=== PATIENT | male | born 1950 | race Caucasian/White ===

== ENCOUNTER → 2018-08-07 | Outpatient (CLI) | payer OTHER ==
[~2018-08-07] MED LIST: ASPIRIN CHEWABL81 MG PO; DICYCLOMINE HCL10 MG PO; INVOKAMET 50-11 EACH PO; LISINOPRIL20 MG PO; MONTELUKAST SOD10 MG PO; OMEPRAZOLE40 MG PO; ROSUVASTATIN CA20 MG PO; SYMB160 INH; TRULICITY0.75 MG/0. SC
== END | disposition home or self-care (01) ==
LOC: US 06:08
DX: K76.0 Fatty (change of) liver, not elsewhere classified (principal)

== ENCOUNTER 2018-09-09 09:03 | Inpatient (IN) | payer OTHER, MEDICARE ==
[~2018-09-09] VITALS: Ht 182.9 cm; Wt 104.4 kg
--- NOTE | ~2018-09-09 | O ---
[place], [place] OPERATIVE NOTE NAME: SWETA MARRERO UNIT #: [id number] ROOM: 416 DOCTOR: ILDA SMITH MD BIRTHDATE: [birth year] DOS: 09/10/2018 GASTROENDOSCOPIC REPORT The patient has presented with chief complaint of epigastric abdominal pain, undergoing investigation. The patient has already had previous studies, cardiac catheterization has been negative. Cardiac workup has been negative; however, he has had persistent symptomatology that has been addressed. PROCEDURE: Today's procedure part of investigation is panendoscopy plus biopsy. PREMEDICATION: Propofol. SCOPE: Olympus forward-viewing gastroscope Q10 video. REPORT: After putting the patient in left lateral position and application of lubricant to the scope, the scope was introduced. Thereafter, under direct visualization, I advanced through the length of esophagus without difficulty. A small hiatal hernia was noticed. Gastric pouch was entered. Gastritis noticed, moderate degree. Duodenal bulb, second and third part within normal limits. Antral biopsy was obtained. The patient extubated, tolerated the procedure well. IMPRESSION: Small hiatal hernia, gastritis. PLAN AND DISCUSSION: Omeprazole 40 mg day would do, this patient is concerned that he may have a pathology that has not been discovered. He is extensively been admitted in multiple hospitals. C. diff has been negative and cardiac workup has been negative, under observation. ILDA SMITH MD CM:OPRECORD:OPERATIVE NOTE [id number] ILDA SMITH MD 09/10/181654 interface
--- NOTE | ~2018-09-09 | CON ---
[place], [place] REPORT OF CONSULTATION NAME: SWETA MARRERO UNIT #: [id number] ROOM: 416 DOCTOR: ILDA SMITH MD BIRTHDATE: [birth year] DOS: 09/10/2018 HISTORY OF PRESENT ILLNESS: This is a 67-year-old patient who has presented with chronic diarrhea, undergone investigation. The patient with epigastric distress as well. The patient has been investigated previously by Dr. Valentine. PAST MEDICAL HISTORY: Bladder CA, COPD, diabetes, hyperlipidemia, and hypertension. PAST SURGICAL HISTORY: Hernia repair and bladder repair. SOCIAL HISTORY: Passive smoker. Nonalcohol consumer. FAMILY HISTORY: Noncontributory. ALLERGIES: No known medications. MEDICATIONS: List has been reviewed on omeprazole. REVIEW OF SYSTEMS: HEENT: Denies double vision or blurred vision. RESPIRATORY: Denies shortness of breath. CARDIOVASCULAR: Denies chest pain. DIGESTIVE SYSTEM: Epigastric distress. PHYSICAL EXAMINATION: VITAL SIGNS: Stable. HEENT: Benign. NECK: Supple, no thyromegaly. CHEST: Symmetric anatomy, equal expansion, chronic obstructive pulmonary disease. HEART: Normal sinus rhythm, no gallop, no murmur. ABDOMEN: Soft. No hepato-organomegaly. Bowel sounds present. EXTREMITIES: No cyanosis, no pedal edema. NEUROLOGIC: Alert, oriented to time, place, and person. IMPRESSION AND PLAN: Reviewed, records reviewed for an endoscopy of upper gastrointestinal tract with dyspepsia. This consult was missing from 09/10/2018. Therefore, I have redictated. [place], [place] REPORT OF CONSULTATION NAME: SWETA MARRERO UNIT #: [id number] ROOM: 416 DOCTOR: ILDA SMITH MD BIRTHDATE: [birth year] ILDA SMITH MD CM:CONSTR:REPORT OF CONSULTATION 10/29/18 1923 interface
--- NOTE | ~2018-09-09 | EKG ---
[place], [place] ELECTROCARDIOGRAM REPORT NAME: SWETA MARRERO UNIT #: [id number] ROOM: 416 DOCTOR: FITO DRAFT REPORT BIRTHDATE: [birth year] [facility] Test Date: 2018-09-09 Test Time: 10:32:07 Pat Name: SWETA MARRERO Department: Room: 416 Gender: M [employer]: : 1950 Requested By: HUSEYIN LEVY Order Number: [id number] Reading MD: Harman Rodriguez Measurements Intervals [place] Rate: 91 P: 53 UT: 171 QRS: 22 QRSD: 96 T: 63 QT: 394 QTc: 485 Interpretive Statements Sinus rhythm Borderline prolonged QT interval Electronically Signed On 09-11-2018 4:29:37 PDT by Harman Rodriguez CM:EKGRPT:ELECTROCARDIOGRAM REPORT [id number] HUSEYIN LEVY EPIPHANY DRAFT REPORT HUSEYIN LEVY
[2018-09-09 09:07] VITALS: BP 131/83
[2018-09-09 10:25] LABS: HEMATOCRIT 46.3 % (42.0-52.0); HEMOGLOBIN 15.6 g/dl (14.0-18.0); MEAN CELL VOLUME 90.8 fl (80.0-94.0); MEAN CORPUSCULAR HGB 30.6 pg (27.0-31.0); MEAN CORPUSCULAR HGB CONC 33.7 g/dl (33.0-37.0); MEAN PLATELET VOLUME 10.6 fl (9.6-12.3); PLATELET COUNT AUTOMATED 348 10*3/uL (130-400); RED CELL DISTRI WIDTH 12.6 % (0-14.5); WHITE BLOOD COUNT 11.7 10*3/uL (4.8-10.8)
[2018-09-09 10:41] LABS: ALBUMIN 3.2 gm/dl (3.1-4.5); ALKALINE PHOSPHATASE 71 U/L (45-117); BUN 27 mg/dl (7-24); CHLORIDE 103 mmol/L (98-107); CREATININE 0.81 mg/dL (0.70-1.30); LIPASE 43 U/L (73-393); POTASSIUM 3.9 mmol/L (3.5-5.1); SGOT/AST 17 IU/L (3-35); SGPT/ALT 27 U/L (12-78); SODIUM 137 mmol/L (136-145); TOTAL PROTEIN 7.2 gm/dL (6.4-8.2)
[2018-09-09 10:43] LABS: TROPONIN I < 0.015 ng/ml (<0.045)
[2018-09-09 10:47] LABS: PLATELET SUFFICIENCY NORMAL (NORMAL); TOTAL CELLS COUNTED 100 #CELLS
[2018-09-09 11:33] LABS: BILIRUBIN NEGATIVE (NEGATIVE); BLOOD NEGATIVE (NEGATIVE); CLARITY CLEAR (CLEAR); COLOR YELLOW (YELLOW); GLUCOSE 3+ (NEGATIVE); KETONE 2+ (NEGATIVE); LEUKO ESTERASE NEGATIVE (NEGATIVE); NITRITE NEGATIVE (NEGATIVE); SPECIFIC GRAVITY 1.025 (1.005-1.030); UROBILINOGEN 0.2 E.U./dl (0.2-1.0)
[2018-09-09 11:43] LABS: WBC 0-2 wbc/hpf (0-5)
[2018-09-09 11:50] VITALS: BP 136/88
[2018-09-09 13:11] VITALS: BP 144/90
[2018-09-09] MEDS ORDERED: ROSUVASTATIN CA20 MG PO (14:15)
[2018-09-09] MEDS ORDERED: INVOKAMET 50-11 EACH PO (14:15)
[2018-09-09] MEDS ORDERED: MONTELUKAST SOD10 MG PO (14:16)
[2018-09-09] MEDS ORDERED: LISINOPRIL20 MG PO (14:16)
[2018-09-09] MEDS ORDERED: TRULICITY0.75 MG/0. SC (14:17)
[2018-09-09] MEDS ORDERED: OMEPRAZOLE40 MG PO (14:17)
[2018-09-09] MEDS ORDERED: DICYCLOMINE HCL10 MG PO (14:18)
[2018-09-09] MEDS ORDERED: SYMB160 INH (14:18)
[2018-09-09] MEDS ORDERED: ASPIRIN CHEWABL81 MG PO (14:18)
[2018-09-09 16:00] VITALS: BP 119/70
[2018-09-09 20:00] VITALS: BP 126/68
[2018-09-10] VITALS (7 sets, daily range): BP systolic 126–163; BP diastolic 62–90
[2018-09-10 06:40] LABS: BASO # 0.1 10*3/uL (0.0-0.1); BASO % 1.2 % (0.0-1.0); EOS # 0.1 10*3/uL (0.0-0.4); EOS % 2.1 % (1.0-4.0); HEMATOCRIT 43.2 % (42.0-52.0); LYMPH # 1.1 10*3/uL (1.3-4.4); MEAN CELL VOLUME 92.3 fl (80.0-94.0); MEAN CORPUSCULAR HGB 29.9 pg (27.0-31.0); MEAN CORPUSCULAR HGB CONC 32.4 g/dl (33.0-37.0); MEAN PLATELET VOLUME 10.7 fl (9.6-12.3); MONO # 0.9 10*3/uL (0.1-1.0); MONO % 15.8 % (3.0-9.0); NEUT # 3.5 10*3/uL (2.3-7.9); NEUT % 60.5 % (47.0-73.0); PLATELET COUNT AUTOMATED 270 10*3/uL (130-400); RED BLOOD COUNT 4.68 10*6/uL (4.50-5.90); RED CELL DISTRI WIDTH 12.7 % (0-14.5); WHITE BLOOD COUNT 5.8 10*3/uL (4.8-10.8)
[2018-09-10 07:06] LABS: ALBUMIN 2.8 gm/dl (3.1-4.5); BUN 25 mg/dl (7-24); CHLORIDE 104 mmol/L (98-107); CHOLESTEROL 154 mg/dL (<200); CREATININE 0.81 mg/dL (0.70-1.30); INTERNATIONAL NORM RATIO 0.9 (2.0-3.5); PHOSPHOROUS 2.7 mg/dL (2.5-4.9); SGOT/AST 24 IU/L (3-35); SGPT/ALT 21 U/L (12-78); SODIUM 137 mmol/L (136-145); TOTAL PROTEIN 6.5 gm/dL (6.4-8.2)
[2018-09-10 07:12] LABS: ALKALINE PHOSPHATASE 59 U/L (45-117); HDL CHOLESTEROL 27 mg/dl (40-60); LDL CHOLESTEROL 92 mg/dL (9-159); TRIGLYCERIDES 176 mg/dl (<150); VLDL CHOLESTEROL 35 mg/dL (6-40)
[2018-09-10 07:14] LABS: POTASSIUM 4.3 mmol/L (3.5-5.1)
[2018-09-10 08:49] LABS: VITAMIN D, 25-HYDROXY 25.1 ng/mL (30-100)
[2018-09-11] VITALS: BP 120/60
[2018-09-11 06:28] LABS: CHLORIDE 106 mmol/L (98-107); CREATININE 0.67 mg/dL (0.70-1.30); POTASSIUM 3.6 mmol/L (3.5-5.1); SODIUM 139 mmol/L (136-145)
[2018-09-11 06:29] LABS: BUN 15 mg/dl (7-24)
[2018-09-11 11:31] VITALS: BP 153/81
[2018-09-11 16:00] VITALS: BP 155/86
[2018-09-11 20:00] VITALS: BP 128/75
[2018-09-12] VITALS: BP 133/71
[2018-09-12 05:48] LABS: BUN 11 mg/dl (7-24); CHLORIDE 105 mmol/L (98-107); CREATININE 0.73 mg/dL (0.70-1.30); POTASSIUM 3.7 mmol/L (3.5-5.1); SODIUM 139 mmol/L (136-145)
[2018-09-12 06:17] LABS: HEMATOCRIT 44.5 % (42.0-52.0); HEMOGLOBIN 14.8 g/dl (14.0-18.0); MEAN CELL VOLUME 90.4 fl (80.0-94.0); MEAN CORPUSCULAR HGB 30.1 pg (27.0-31.0); MEAN CORPUSCULAR HGB CONC 33.3 g/dl (33.0-37.0); MEAN PLATELET VOLUME 10.5 fl (9.6-12.3); PLATELET COUNT AUTOMATED 286 10*3/uL (130-400); RED BLOOD COUNT 4.92 10*6/uL (4.50-5.90); RED CELL DISTRI WIDTH 12.3 % (0-14.5); WHITE BLOOD COUNT 6.6 10*3/uL (4.8-10.8)
[2018-09-12 06:31] LABS: INTERNATIONAL NORM RATIO 0.9 (2.0-3.5)
[2018-09-12 07:08] LABS: BASOPHILS 2 % (0-1); PLATELET SUFFICIENCY NORMAL (NORMAL); TOTAL CELLS COUNTED 100 #CELLS
[2018-09-12 08:00] VITALS: BP 147/81
[2018-09-12 12:02] VITALS: BP 146/91
== END 2018-09-12 13:40 | disposition home or self-care (01) | DRG 388 ==
LOC: ED 09:03 → 4E 13:09 → EDHOLD 13:09 → 4E 13:28
PROVIDERS: Internal Medicine; Student in an Organized Health Care Education/Training Program; ADMIT Internal Medicine
PROC: 0DB78ZX Excision of Stomach, Pylorus, Via Natural or Artificial Opening Endoscopic, Diagnostic (ICD-10-PCS; principal; 2018-09-10)
DX: K56.600 Partial intestinal obstruction, unspecified as to cause (principal); J18.1 Lobar pneumonia, unspecified organism; J44.0 Chronic obstructive pulmonary disease with (acute) lower respiratory infection; K29.90 Gastroduodenitis, unspecified, without bleeding; E11.65 Type 2 diabetes mellitus with hyperglycemia; K25.7 Chronic gastric ulcer without hemorrhage or perforation; Z66 Do not resuscitate; Z51.5 Encounter for palliative care; E86.0 Dehydration; K52.9 Noninfective gastroenteritis and colitis, unspecified; E80.6 Other disorders of bilirubin metabolism; K44.9 Diaphragmatic hernia without obstruction or gangrene; E83.41 Hypermagnesemia; E78.5 Hyperlipidemia, unspecified; I10 Essential (primary) hypertension; Z87.891 Personal history of nicotine dependence; Z85.51 Personal history of malignant neoplasm of bladder; Z82.49 Family history of ischemic heart disease and other diseases of the circulatory system; Z79.82 Long term (current) use of aspirin; Z79.899 Other long term (current) drug therapy

== ENCOUNTER → 2019-02-06 | Outpatient (CLI) | payer OTHER ==
[2019-02-06 15:19] LABS: BILIRUBIN NEGATIVE (NEGATIVE); BLOOD NEGATIVE (NEGATIVE); CLARITY CLEAR (CLEAR); COLOR YELLOW (YELLOW); GLUCOSE 3+ (NEGATIVE); KETONE NEGATIVE (NEGATIVE); LEUKO ESTERASE NEGATIVE (NEGATIVE); NITRITE NEGATIVE (NEGATIVE); SPECIFIC GRAVITY 1.015 (1.005-1.030)
[2019-02-06 15:29] LABS: BACTERIA 1+; EPITHELIAL CELLS 0-2; RBC 0-2 rbc/hpf (0-2); WBC 0-2 wbc/hpf (0-5)
== END | disposition home or self-care (01) ==
LOC: RESCLI 00:43
PROVIDERS: Hospitalist
DX: E11.9 Type 2 diabetes mellitus without complications (principal); J44.9 Chronic obstructive pulmonary disease, unspecified; I10 Essential (primary) hypertension; N12 Tubulo-interstitial nephritis, not specified as acute or chronic; R31.9 Hematuria, unspecified; E78.1 Pure hyperglyceridemia; Z85.51 Personal history of malignant neoplasm of bladder; Z79.899 Other long term (current) drug therapy; Z87.891 Personal history of nicotine dependence; Z88.8 Allergy status to other drugs, medicaments and biological substances

== ENCOUNTER → 2019-02-27 | Outpatient (CLI) | payer OTHER | END | disposition home or self-care (01) | LOC: RESCLI 01:45 | DX: E78.1 Pure hyperglyceridemia (principal); I10 Essential (primary) hypertension; J44.9 Chronic obstructive pulmonary disease, unspecified; E11.9 Type 2 diabetes mellitus without complications; Z79.899 Other long term (current) drug therapy; Z87.891 Personal history of nicotine dependence ==

== ENCOUNTER → 2019-03-06 | Outpatient (CLI) | payer OTHER ==
[2019-03-06 09:58] LABS: CREATININE 0.86 mg/dL (0.70-1.30)
== END | disposition home or self-care (01) ==
LOC: LAB 09:34 → CT 10:00
PROVIDERS: Radiology Diagnostic Radiology
DX: C67.9 Malignant neoplasm of bladder, unspecified (principal); R31.9 Hematuria, unspecified

== ENCOUNTER → 2019-03-13 | Outpatient (CLI) | payer OTHER | END | disposition home or self-care (01) | LOC: RESCLI 00:37 | DX: E11.9 Type 2 diabetes mellitus without complications (principal); J44.9 Chronic obstructive pulmonary disease, unspecified; I10 Essential (primary) hypertension; E78.1 Pure hyperglyceridemia; R31.0 Gross hematuria; R30.0 Dysuria; Z79.899 Other long term (current) drug therapy ==

== ENCOUNTER → 2019-04-10 | Outpatient (CLI) | payer OTHER | END | disposition home or self-care (01) | LOC: CT 00:34 | DX: C67.9 Malignant neoplasm of bladder, unspecified (principal) ==

== ENCOUNTER → 2019-04-22 | Day surgery (SDC) | payer OTHER ==
[2019-04-22] VITALS (9 sets, daily range): BP systolic 140–164; BP diastolic 74–101
[~2019-04-22] VITALS: Ht 182.8 cm; Wt 102.5 kg
[2019-04-22 08:41] LABS: BASO # 0.1 10*3/uL (0.0-0.1); BASO % 1.2 % (0.0-1.0); EOS # 0.4 10*3/uL (0.0-0.4); EOS % 4.3 % (1.0-4.0); HEMATOCRIT 50.8 % (42.0-52.0); HEMOGLOBIN 16.7 g/dl (14.0-18.0); LYMPH # 1.2 10*3/uL (1.3-4.4); LYMPH % 12.5 % (27.0-41.0); MEAN CELL VOLUME 90.6 fl (80.0-94.0); MEAN CORPUSCULAR HGB 29.8 pg (27.0-31.0); MEAN CORPUSCULAR HGB CONC 32.9 g/dl (33.0-37.0); MEAN PLATELET VOLUME 10.6 fl (9.6-12.3); MONO # 0.9 10*3/uL (0.1-1.0); MONO % 9.6 % (3.0-9.0); NEUT # 6.6 10*3/uL (2.3-7.9); NEUT % 72.1 % (47.0-73.0); PLATELET COUNT AUTOMATED 301 10*3/uL (130-400); RED BLOOD COUNT 5.61 10*6/uL (4.50-5.90); RED CELL DISTRI WIDTH 13.3 % (0-14.5); WHITE BLOOD COUNT 9.2 10*3/uL (4.8-10.8)
[2019-04-22 08:53] LABS: INTERNATIONAL NORM RATIO 0.9 (2.0-3.5)
[2019-04-22 09:33] LABS: ACT PARTIAL THROMBO TIME 27.6 SECONDS (20.0-32.1)
== END | disposition home or self-care (01) ==
LOC: SDC 04-14 09:00 → CT 04-14 09:00 → RAD 04-14 09:00 → SDC 01:12
PROVIDERS: Internal Medicine Hematology & Oncology
DX: C22.7 Other specified carcinomas of liver (principal); I10 Essential (primary) hypertension

== ENCOUNTER → 2019-07-22 | Outpatient (CLI) | payer OTHER | END | disposition home or self-care (01) | LOC: CT 07:48 | DX: C67.9 Malignant neoplasm of bladder, unspecified (principal); C18.9 Malignant neoplasm of colon, unspecified; C80.0 Disseminated malignant neoplasm, unspecified; R59.1 Generalized enlarged lymph nodes; K76.9 Liver disease, unspecified; R91.8 Other nonspecific abnormal finding of lung field ==

== ENCOUNTER → 2020-04-11 | Outpatient (CLI) | payer OTHER | END | disposition home or self-care (01) | LOC: CT 07:23 | PROVIDERS: ATTEND Internal Medicine Hematology & Oncology | DX: N13.30 Unspecified hydronephrosis (principal); R91.8 Other nonspecific abnormal finding of lung field; N28.89 Other specified disorders of kidney and ureter; N40.0 Benign prostatic hyperplasia without lower urinary tract symptoms; K76.9 Liver disease, unspecified; C80.0 Disseminated malignant neoplasm, unspecified; C18.9 Malignant neoplasm of colon, unspecified; C67.9 Malignant neoplasm of bladder, unspecified ==

== ENCOUNTER → 2020-07-20 | Outpatient (CLI) | payer OTHER | END | disposition home or self-care (01) | LOC: CT 07:51 | PROVIDERS: ATTEND Internal Medicine Hematology & Oncology | DX: C78.00 Secondary malignant neoplasm of unspecified lung (principal); N32.89 Other specified disorders of bladder; C18.9 Malignant neoplasm of colon, unspecified; C67.9 Malignant neoplasm of bladder, unspecified; C80.0 Disseminated malignant neoplasm, unspecified ==

== ENCOUNTER 2020-08-13 16:19 | Emergency (ER) | payer OTHER ==
[~2020-08-13] VITALS: Ht 182.8 cm; Wt 90.7 kg
[2020-08-13 16:47] LABS: BILIRUBIN Negative (Negative); BLOOD 1+ (Negative); CLARITY Clear (Clear); COLOR Yellow (Yellow); GLUCOSE 1+ (Negative); KETONE Negative (Negative); LEUKO ESTERASE 1+ (Negative); NITRITE Negative (Negative); PH 5.5 (4.5-8.0)
[2020-08-13 16:50] LABS: HEMATOCRIT 40.6 % (42.0-52.0); MEAN CELL VOLUME 93.1 fl (80.0-94.0); MEAN CORPUSCULAR HGB 31.2 pg (27.0-31.0); MEAN CORPUSCULAR HGB CONC 33.5 g/dl (33.0-37.0); MEAN PLATELET VOLUME 10.2 fl (9.6-12.3); PLATELET COUNT AUTOMATED 287 10*3/uL (130-400); RED BLOOD COUNT 4.36 10*6/uL (4.50-5.90); WHITE BLOOD COUNT 12.6 10*3/uL (4.8-10.8)
[2020-08-13 16:58] LABS: BACTERIA TRACE; EPITHELIAL CELLS 0-2; MUCOUS TRACE
[2020-08-13 17:03] LABS: ALBUMIN 2.9 gm/dl (3.1-4.5); ALKALINE PHOSPHATASE 268 U/L (45-117); BUN 19 mg/dl (7-24); CHLORIDE 104 mmol/L (98-107); CREATININE 0.85 mg/dL (0.70-1.30); POTASSIUM 4.2 mmol/L (3.5-5.1); SGOT/AST 36 IU/L (3-35); SGPT/ALT 36 U/L (12-78); SODIUM 133 mmol/L (136-145); TOTAL PROTEIN 7.3 gm/dL (6.4-8.2)
[2020-08-13 17:11] LABS: BASOPHILS 2 % (0-1); BURR CELLS FEW; PLATELET SUFFICIENCY NORMAL (NORMAL); TOTAL CELLS COUNTED 100 #CELLS
[2020-08-13] MEDS ORDERED: ZOFRAN4 MG PO (20:23)
[2020-08-13] MEDS ORDERED: HYDROCODONE-AC1 EAC1 PO (20:23)
[2020-08-13] MEDS ORDERED: CIPRO500 MG PO (20:23)
== END 2020-08-13 20:47 | disposition home or self-care (01) ==
LOC: ED 16:19
PROVIDERS: Physician Assistant
DX: R10.30 Lower abdominal pain, unspecified (principal); R11.0 Nausea; M54.5 Low back pain; R30.9 Painful micturition, unspecified; Z85.51 Personal history of malignant neoplasm of bladder; Z85.05 Personal history of malignant neoplasm of liver; Z85.038 Personal history of other malignant neoplasm of large intestine; Z85.07 Personal history of malignant neoplasm of pancreas; Z79.899 Other long term (current) drug therapy; Z79.82 Long term (current) use of aspirin; Z87.891 Personal history of nicotine dependence

== ENCOUNTER 2020-08-21 06:42 | Inpatient (IN) | payer OTHER, MEDICARE ==
[~2020-08-21] VITALS: Ht 182.9 cm; Wt 82.6 kg
[2020-08-21] VITALS (7 sets, daily range): BP systolic 121–163; BP diastolic 78–101
[~2020-08-21 06:42] MED LIST changes: +CIPRO500 MG PO; +HYDROCODONE-AC1 EAC1 PO; +ZOFRAN4 MG PO
[2020-08-21 07:19] LABS: BASO # 0.2 10*3/uL (0.0-0.1); BASO % 1.4 % (0.0-1.0); EOS # 0.9 10*3/uL (0.0-0.4); EOS % 8.5 % (1.0-4.0); HEMATOCRIT 45.1 % (42.0-52.0); LYMPH # 0.5 10*3/uL (1.3-4.4); LYMPH % 4.8 % (27.0-41.0); MEAN CELL VOLUME 93.8 fl (80.0-94.0); MEAN CORPUSCULAR HGB 31.2 pg (27.0-31.0); MEAN CORPUSCULAR HGB CONC 33.3 g/dl (33.0-37.0); MEAN PLATELET VOLUME 10.7 fl (9.6-12.3); MONO # 1.1 10*3/uL (0.1-1.0); MONO % 10.8 % (3.0-9.0); NEUT # 7.7 10*3/uL (2.3-7.9); NEUT % 74.2 % (47.0-73.0); PLATELET COUNT AUTOMATED 256 10*3/uL (130-400); RED BLOOD COUNT 4.81 10*6/uL (4.50-5.90); RED CELL DISTRI WIDTH 14.8 % (0-14.5); WHITE BLOOD COUNT 10.4 10*3/uL (4.8-10.8)
[2020-08-21 07:38] LABS: ALBUMIN 3.1 gm/dl (3.1-4.5); ALKALINE PHOSPHATASE 443 U/L (45-117); BUN 14 mg/dl (7-24); CHLORIDE 101 mmol/L (98-107); CREATININE 0.85 mg/dL (0.70-1.30); POTASSIUM 4.2 mmol/L (3.5-5.1); SGOT/AST 59 IU/L (3-35); SGPT/ALT 56 U/L (12-78); SODIUM 133 mmol/L (136-145); TOTAL PROTEIN 7.3 gm/dL (6.4-8.2); TROPONIN I < 0.015 ng/ml (<0.045)
[2020-08-21 07:58] LABS: BILIRUBIN 1+ (Negative); BLOOD 3+ (Negative); CLARITY Cloudy (Clear); COLOR Dark Yellow (Yellow); GLUCOSE Negative (Negative); KETONE Trace (Negative); LEUKO ESTERASE 1+ (Negative); NITRITE Negative (Negative); SPECIFIC GRAVITY 1.025 (1.001-1.030)
[2020-08-21 08:06] LABS: BACTERIA 1+; MUCOUS 1+; RBC TNTC rbc/hpf (0-2); WBC 31-40 wbc/hpf (0-5)
[2020-08-21] MEDS ORDERED: INVOKANA100 M1 PO (13:47)
[2020-08-22] VITALS: BP 142/93
[2020-08-22 06:14] LABS: ALBUMIN 2.3 gm/dl (3.1-4.5); BUN 12 mg/dl (7-24); CHLORIDE 106 mmol/L (98-107); SGOT/AST 82 IU/L (3-35); SGPT/ALT 66 U/L (12-78); SODIUM 135 mmol/L (136-145)
[2020-08-22 06:20] LABS: ACT PARTIAL THROMBO TIME 33.3 SECONDS (20.0-32.1); INTERNATIONAL NORM RATIO 1.1 (2.0-3.5)
[2020-08-22 06:24] LABS: ALKALINE PHOSPHATASE 487 U/L (45-117); FREE T4 1.17 ng/dl (0.76-1.46); TOTAL PROTEIN 5.7 gm/dL (6.4-8.2)
[2020-08-22 06:35] LABS: BASO # 0.1 10*3/uL (0.0-0.1); BASO % 1.1 % (0.0-1.0); EOS # 0.8 10*3/uL (0.0-0.4); EOS % 10.2 % (1.0-4.0); LYMPH # 0.4 10*3/uL (1.3-4.4); LYMPH % 5.2 % (27.0-41.0); MEAN CELL VOLUME 95.5 fl (80.0-94.0); MEAN CORPUSCULAR HGB 30.9 pg (27.0-31.0); MEAN CORPUSCULAR HGB CONC 32.4 g/dl (33.0-37.0); MEAN PLATELET VOLUME 11.4 fl (9.6-12.3); MONO % 12.2 % (3.0-9.0); NEUT # 5.6 10*3/uL (2.3-7.9); PLATELET COUNT AUTOMATED 206 10*3/uL (130-400); RED BLOOD COUNT 3.98 10*6/uL (4.50-5.90); WHITE BLOOD COUNT 7.9 10*3/uL (4.8-10.8)
[2020-08-22 08:00] VITALS: BP 119/78
== END 2020-08-22 11:00 | disposition home or self-care (01) | DRG 391 ==
LOC: ED 06:42 → 4E 12:12 → EDHOLD 12:12 → 4E 12:42
PROVIDERS: Emergency Medicine; Family Medicine; ADMIT Internal Medicine; ATTEND Internal Medicine
DX: K29.80 Duodenitis without bleeding (principal); K85.90 Acute pancreatitis without necrosis or infection, unspecified; E87.1 Hypo-osmolality and hyponatremia; C79.9 Secondary malignant neoplasm of unspecified site; C67.9 Malignant neoplasm of bladder, unspecified; G89.3 Neoplasm related pain (acute) (chronic); R80.9 Proteinuria, unspecified; R74.01 Elevation of levels of liver transaminase levels; R31.9 Hematuria, unspecified; I10 Essential (primary) hypertension; E78.5 Hyperlipidemia, unspecified; Z66 Do not resuscitate; Z51.5 Encounter for palliative care; E11.65 Type 2 diabetes mellitus with hyperglycemia; J44.9 Chronic obstructive pulmonary disease, unspecified; Z92.21 Personal history of antineoplastic chemotherapy; Z87.891 Personal history of nicotine dependence; Z82.49 Family history of ischemic heart disease and other diseases of the circulatory system; Z79.82 Long term (current) use of aspirin; Z79.899 Other long term (current) drug therapy

== ENCOUNTER 2020-08-24 09:09 | Inpatient (IN) | payer OTHER ==
[~2020-08-24] VITALS: Ht 182.8 cm; Wt 86.9 kg
[2020-08-24] VITALS (8 sets, daily range): BP systolic 127–156; BP diastolic 84–99
[~2020-08-24 09:09] MED LIST changes: +INVOKANA100 M1 PO
[2020-08-24 10:13] LABS: BASO # 0.1 10*3/uL (0.0-0.1); BASO % 0.4 % (0.0-1.0); EOS # 0.1 10*3/uL (0.0-0.4); EOS % 1.1 % (1.0-4.0); LYMPH # 0.4 10*3/uL (1.3-4.4); LYMPH % 2.7 % (27.0-41.0); MEAN CELL VOLUME 94.7 fl (80.0-94.0); MEAN CORPUSCULAR HGB 31.1 pg (27.0-31.0); MEAN CORPUSCULAR HGB CONC 32.8 g/dl (33.0-37.0); MEAN PLATELET VOLUME 10.5 fl (9.6-12.3); MONO # 1.3 10*3/uL (0.1-1.0); MONO % 10.4 % (3.0-9.0); NEUT # 10.9 10*3/uL (2.3-7.9); PLATELET COUNT AUTOMATED 200 10*3/uL (130-400); RED BLOOD COUNT 4.12 10*6/uL (4.50-5.90); RED CELL DISTRI WIDTH 15.1 % (0-14.5); WHITE BLOOD COUNT 12.8 10*3/uL (4.8-10.8)
[2020-08-24 10:27] LABS: ALBUMIN 2.4 gm/dl (3.1-4.5); ALKALINE PHOSPHATASE 705 U/L (45-117); BUN 10 mg/dl (7-24); CHLORIDE 103 mmol/L (98-107); CREATININE 0.66 mg/dL (0.70-1.30); LIPASE 399 U/L (73-393); POTASSIUM 3.7 mmol/L (3.5-5.1); SGOT/AST 108 IU/L (3-35); SGPT/ALT 92 U/L (12-78); SODIUM 131 mmol/L (136-145); TOTAL PROTEIN 6.6 gm/dL (6.4-8.2)
[2020-08-24 10:32] LABS: TROPONIN I < 0.015 ng/ml (<0.045)
[2020-08-24 10:58] LABS: BILIRUBIN 2+ (Negative); BLOOD 3+ (Negative); CLARITY Clear (Clear); COLOR Dark Yellow (Yellow); GLUCOSE Negative (Negative); KETONE Trace (Negative); LEUKO ESTERASE 1+ (Negative); NITRITE Negative (Negative)
[2020-08-24 11:07] LABS: MUCOUS TRACE; RBC TNTC rbc/hpf (0-2); WBC 16-20 wbc/hpf (0-5)
[2020-08-25] VITALS: BP 143/83
[2020-08-25 06:24] LABS: ALBUMIN 2.1 gm/dl (3.1-4.5); CHLORIDE 105 mmol/L (98-107); POTASSIUM 3.9 mmol/L (3.5-5.1); SGOT/AST 126 IU/L (3-35); SGPT/ALT 108 U/L (12-78); SODIUM 136 mmol/L (136-145)
[2020-08-25 06:26] LABS: BASO # 0.1 10*3/uL (0.0-0.1); BASO % 0.6 % (0.0-1.0); EOS # 0.5 10*3/uL (0.0-0.4); EOS % 5.4 % (1.0-4.0); HEMATOCRIT 37.3 % (42.0-52.0); LYMPH # 0.3 10*3/uL (1.3-4.4); LYMPH % 3.4 % (27.0-41.0); MEAN CELL VOLUME 95.4 fl (80.0-94.0); MEAN CORPUSCULAR HGB 30.9 pg (27.0-31.0); MEAN CORPUSCULAR HGB CONC 32.4 g/dl (33.0-37.0); MEAN PLATELET VOLUME 11.8 fl (9.6-12.3); MONO # 1.2 10*3/uL (0.1-1.0); MONO % 12.5 % (3.0-9.0); NEUT # 7.2 10*3/uL (2.3-7.9); NEUT % 77.7 % (47.0-73.0); PLATELET COUNT AUTOMATED 177 10*3/uL (130-400); RED BLOOD COUNT 3.91 10*6/uL (4.50-5.90); RED CELL DISTRI WIDTH 15.4 % (0-14.5); WHITE BLOOD COUNT 9.3 10*3/uL (4.8-10.8)
[2020-08-25 06:33] LABS: ALKALINE PHOSPHATASE 663 U/L (45-117); BUN 9 mg/dl (7-24); CHOLESTEROL 144 mg/dL (<200); CREATININE 0.53 mg/dL (0.70-1.30); LDL CHOLESTEROL 102 mg/dL (9-159); TOTAL PROTEIN 5.8 gm/dL (6.4-8.2); TRIGLYCERIDES 109 mg/dl (<150)
[2020-08-25 08:00] VITALS: BP 146/92
[2020-08-25 12:00] VITALS: BP 153/95
[2020-08-25 16:00] VITALS: BP 156/95
[2020-08-25 20:00] VITALS: BP 140/82
[2020-08-26] VITALS: BP 138/76
[2020-08-26 06:09] LABS: BASO # 0.1 10*3/uL (0.0-0.1); BASO % 0.7 % (0.0-1.0); EOS # 0.5 10*3/uL (0.0-0.4); EOS % 5.4 % (1.0-4.0); LYMPH # 0.4 10*3/uL (1.3-4.4); LYMPH % 3.9 % (27.0-41.0); MEAN CELL VOLUME 94.5 fl (80.0-94.0); MEAN CORPUSCULAR HGB 30.6 pg (27.0-31.0); MEAN CORPUSCULAR HGB CONC 32.4 g/dl (33.0-37.0); MEAN PLATELET VOLUME 11.4 fl (9.6-12.3); MONO # 1.1 10*3/uL (0.1-1.0); MONO % 11.8 % (3.0-9.0); NEUT # 7.1 10*3/uL (2.3-7.9); NEUT % 77.9 % (47.0-73.0); PLATELET COUNT AUTOMATED 192 10*3/uL (130-400); RED BLOOD COUNT 4.02 10*6/uL (4.50-5.90); RED CELL DISTRI WIDTH 15.4 % (0-14.5); WHITE BLOOD COUNT 9.2 10*3/uL (4.8-10.8)
[2020-08-26 06:13] LABS: ALBUMIN 1.8 gm/dl (3.1-4.5); ALKALINE PHOSPHATASE 660 U/L (45-117); BUN 11 mg/dl (7-24); CHLORIDE 104 mmol/L (98-107); CREATININE 0.56 mg/dL (0.70-1.30); POTASSIUM 3.9 mmol/L (3.5-5.1); SGOT/AST 78 IU/L (3-35); SGPT/ALT 89 U/L (12-78); SODIUM 134 mmol/L (136-145); TOTAL PROTEIN 5.9 gm/dL (6.4-8.2)
[2020-08-26 08:00] VITALS: BP 153/95
[2020-08-26 12:00] VITALS: BP 140/96
[2020-08-26 16:00] VITALS: BP 149/91
[2020-08-26 20:00] VITALS: BP 138/80
[2020-08-27] VITALS: BP 139/78
[2020-08-27 06:44] LABS: BASO # 0.1 10*3/uL (0.0-0.1); BASO % 0.7 % (0.0-1.0); EOS # 0.5 10*3/uL (0.0-0.4); EOS % 5.7 % (1.0-4.0); HEMATOCRIT 38.5 % (42.0-52.0); LYMPH # 0.4 10*3/uL (1.3-4.4); LYMPH % 4.2 % (27.0-41.0); MEAN CELL VOLUME 93.7 fl (80.0-94.0); MEAN CORPUSCULAR HGB 30.7 pg (27.0-31.0); MEAN CORPUSCULAR HGB CONC 32.7 g/dl (33.0-37.0); MEAN PLATELET VOLUME 11.6 fl (9.6-12.3); MONO # 1.1 10*3/uL (0.1-1.0); MONO % 12.3 % (3.0-9.0); NEUT # 7.1 10*3/uL (2.3-7.9); NEUT % 76.8 % (47.0-73.0); PLATELET COUNT AUTOMATED 189 10*3/uL (130-400); RED BLOOD COUNT 4.11 10*6/uL (4.50-5.90); RED CELL DISTRI WIDTH 15.4 % (0-14.5); WHITE BLOOD COUNT 9.2 10*3/uL (4.8-10.8)
[2020-08-27 07:26] LABS: CHLORIDE 104 mmol/L (98-107); POTASSIUM 3.7 mmol/L (3.5-5.1); SODIUM 132 mmol/L (136-145)
[2020-08-27 07:31] LABS: ALBUMIN 1.8 gm/dl (3.1-4.5); ALKALINE PHOSPHATASE 748 U/L (45-117); BUN 10 mg/dl (7-24); SGOT/AST 79 IU/L (3-35); SGPT/ALT 81 U/L (12-78); TOTAL PROTEIN 5.7 gm/dL (6.4-8.2)
[2020-08-27 08:00] VITALS: BP 126/83
[2020-08-27 12:00] VITALS: BP 138/91
[2020-08-27 16:00] VITALS: BP 141/97
[2020-08-27 20:00] VITALS: BP 146/94
[2020-08-28 00:06] VITALS: BP 148/90
[2020-08-28 06:10] LABS: BASO # 0.1 10*3/uL (0.0-0.1); BASO % 0.7 % (0.0-1.0); EOS # 0.6 10*3/uL (0.0-0.4); EOS % 6.5 % (1.0-4.0); LYMPH # 0.4 10*3/uL (1.3-4.4); LYMPH % 4.3 % (27.0-41.0); MEAN CELL VOLUME 94.1 fl (80.0-94.0); MEAN CORPUSCULAR HGB 31.2 pg (27.0-31.0); MEAN CORPUSCULAR HGB CONC 33.2 g/dl (33.0-37.0); MEAN PLATELET VOLUME 11.6 fl (9.6-12.3); MONO # 1.1 10*3/uL (0.1-1.0); MONO % 13.3 % (3.0-9.0); NEUT # 6.4 10*3/uL (2.3-7.9); NEUT % 74.9 % (47.0-73.0); PLATELET COUNT AUTOMATED 182 10*3/uL (130-400); RED BLOOD COUNT 4.04 10*6/uL (4.50-5.90); RED CELL DISTRI WIDTH 15.4 % (0-14.5); WHITE BLOOD COUNT 8.6 10*3/uL (4.8-10.8)
[2020-08-28 06:26] LABS: BUN 12 mg/dl (7-24); CHLORIDE 104 mmol/L (98-107); POTASSIUM 3.7 mmol/L (3.5-5.1); SODIUM 134 mmol/L (136-145)
[2020-08-28 06:28] LABS: CREATININE 0.55 mg/dL (0.70-1.30)
[2020-08-28 08:10] VITALS: BP 129/92
[2020-08-28 12:28] VITALS: BP 153/89
[2020-08-28 16:04] VITALS: BP 140/96
[2020-08-28 20:00] VITALS: BP 139/85
[2020-08-29] VITALS: BP 147/93
[2020-08-29 06:23] LABS: ALBUMIN 1.7 gm/dl (3.1-4.5); BUN 10 mg/dl (7-24); CHLORIDE 102 mmol/L (98-107); CREATININE 0.53 mg/dL (0.70-1.30); POTASSIUM 3.7 mmol/L (3.5-5.1); SGOT/AST 94 IU/L (3-35); SGPT/ALT 72 U/L (12-78); SODIUM 135 mmol/L (136-145); TOTAL PROTEIN 5.7 gm/dL (6.4-8.2)
[2020-08-29 06:24] LABS: ALKALINE PHOSPHATASE 898 U/L (45-117)
[2020-08-29 06:49] LABS: BASO # 0.1 10*3/uL (0.0-0.1); BASO % 0.5 % (0.0-1.0); EOS # 0.7 10*3/uL (0.0-0.4); EOS % 7.3 % (1.0-4.0); HEMATOCRIT 37.9 % (42.0-52.0); LYMPH # 0.4 10*3/uL (1.3-4.4); MEAN CELL VOLUME 93.8 fl (80.0-94.0); MEAN CORPUSCULAR HGB 30.7 pg (27.0-31.0); MEAN CORPUSCULAR HGB CONC 32.7 g/dl (33.0-37.0); MEAN PLATELET VOLUME 11.5 fl (9.6-12.3); MONO # 1.2 10*3/uL (0.1-1.0); MONO % 13.4 % (3.0-9.0); NEUT # 6.8 10*3/uL (2.3-7.9); NEUT % 74.6 % (47.0-73.0); PLATELET COUNT AUTOMATED 195 10*3/uL (130-400); RED BLOOD COUNT 4.04 10*6/uL (4.50-5.90); RED CELL DISTRI WIDTH 15.3 % (0-14.5); WHITE BLOOD COUNT 9.1 10*3/uL (4.8-10.8)
[2020-08-29 08:00] VITALS: BP 152/81
[2020-08-29 12:00] VITALS: BP 150/84
[2020-08-29] MEDS ORDERED: INVANZ1 GM/50 ML IV (14:56)
[2020-08-29] MEDS ORDERED: OXYCONTIN20 M1 PO (15:09)
[2020-08-29] MEDS ORDERED: OXYCODONE HCL5 MG PO (15:09)
== END 2020-08-29 15:35 | disposition home health service (06) | DRG 871 ==
LOC: ED 09:09 → EDHOLD 12:52 → 5E 12:52
PROVIDERS: Emergency Medicine; Family Medicine; Student in an Organized Health Care Education/Training Program; ADMIT Internal Medicine; ATTEND Internal Medicine
DX: A41.51 Sepsis due to Escherichia coli [E. coli] (principal); E43 Unspecified severe protein-calorie malnutrition; E87.1 Hypo-osmolality and hyponatremia; N30.01 Acute cystitis with hematuria; Z16.12 Extended spectrum beta lactamase (ESBL) resistance; C79.9 Secondary malignant neoplasm of unspecified site; C67.9 Malignant neoplasm of bladder, unspecified; K29.90 Gastroduodenitis, unspecified, without bleeding; G89.3 Neoplasm related pain (acute) (chronic); R74.01 Elevation of levels of liver transaminase levels; D53.9 Nutritional anemia, unspecified; R74.8 Abnormal levels of other serum enzymes; R80.0 Isolated proteinuria; E80.6 Other disorders of bilirubin metabolism; E11.65 Type 2 diabetes mellitus with hyperglycemia; I10 Essential (primary) hypertension; E78.5 Hyperlipidemia, unspecified; Z66 Do not resuscitate; Z51.5 Encounter for palliative care; J44.9 Chronic obstructive pulmonary disease, unspecified; Z87.891 Personal history of nicotine dependence; Z82.49 Family history of ischemic heart disease and other diseases of the circulatory system; Z79.899 Other long term (current) drug therapy; Z79.82 Long term (current) use of aspirin; Z68.25 Body mass index [BMI] 25.0-25.9, adult

== ENCOUNTER 2020-09-09 11:41 | Inpatient (IN) | payer OTHER ==
[~2020-09-09] VITALS: Ht 182.9 cm; Wt 89.4 kg
[~2020-09-09 11:41] MED LIST changes: +INVANZ1 GM/50 ML IV; +OXYCODONE HCL5 MG PO; +OXYCONTIN20 M1 PO
[2020-09-09 11:55] VITALS: BP 108/62
[2020-09-09 12:16] LABS: HEMATOCRIT 41.6 % (42.0-52.0); MEAN CELL VOLUME 89.8 fl (80.0-94.0); MEAN CORPUSCULAR HGB 30.2 pg (27.0-31.0); MEAN CORPUSCULAR HGB CONC 33.7 g/dl (33.0-37.0); MEAN PLATELET VOLUME 10.7 fl (9.6-12.3); PLATELET COUNT AUTOMATED 255 10*3/uL (130-400); RED BLOOD COUNT 4.63 10*6/uL (4.50-5.90); RED CELL DISTRI WIDTH 17.1 % (0-14.5)
[2020-09-09 12:18] LABS: WHITE BLOOD COUNT 37.6 10*3/uL (4.8-10.8)
[2020-09-09 12:35] LABS: PLATELET SUFFICIENCY NORMAL (NORMAL); TOTAL CELLS COUNTED 100 #CELLS
[2020-09-09 12:36] LABS: CREATININE 1.51 mg/dL (0.70-1.30); POTASSIUM 5.2 mmol/L (3.5-5.1); TOTAL PROTEIN 5.8 gm/dL (6.4-8.2)
[2020-09-09 16:00] VITALS: BP 111/91
[2020-09-09 18:00] VITALS: BP 111/91
[2020-09-09 20:00] VITALS: BP 119/89
[2020-09-09 23:49] LABS: BILIRUBIN 2+ (Negative); BLOOD 3+ (Negative); CLARITY Cloudy (Clear); COLOR Dark Yellow (Yellow); GLUCOSE Negative (Negative); KETONE Negative (Negative); LEUKO ESTERASE 2+ (Negative); NITRITE Negative (Negative)
[2020-09-10] VITALS: BP 107/73
[2020-09-10 00:11] LABS: RBC 31-40 rbc/hpf (0-2); WBC 21-30 wbc/hpf (0-5)
[2020-09-10 00:12] LABS: BACTERIA 4+
[2020-09-10 06:07] LABS: ALBUMIN 1.9 gm/dl (3.1-4.5); CREATININE 1.47 mg/dL (0.70-1.30); POTASSIUM 5.4 mmol/L (3.5-5.1); TOTAL PROTEIN 5.5 gm/dL (6.4-8.2)
[2020-09-10 06:23] LABS: HEMATOCRIT 39.3 % (42.0-52.0); MEAN CELL VOLUME 90.1 fl (80.0-94.0); MEAN CORPUSCULAR HGB CONC 34.4 g/dl (33.0-37.0); MEAN PLATELET VOLUME 11.3 fl (9.6-12.3); RED BLOOD COUNT 4.36 10*6/uL (4.50-5.90); RED CELL DISTRI WIDTH 17.4 % (0-14.5)
[2020-09-10 06:25] LABS: PLATELET COUNT AUTOMATED 168 10*3/uL (130-400)
[2020-09-10 06:26] LABS: WHITE BLOOD COUNT 43.7 10*3/uL (4.8-10.8)
[2020-09-10 06:55] LABS: TOTAL CELLS COUNTED 100 #CELLS; VACUOLATION OF NEUTROPHILS SLIGHT
[2020-09-10 06:56] LABS: BURR CELLS FEW; PLATELET SUFFICIENCY NORMAL (NORMAL); SCHISTOCYTES FEW
[2020-09-10 08:09] VITALS: BP 117/83
[2020-09-10 12:00] VITALS: BP 117/83
[2020-09-10] MEDS ORDERED: MORPHINE SULFATE5 MG SL (12:00)
== END 2020-09-10 13:05 | disposition hospice, home (50) | DRG 686 ==
LOC: ED 11:41 → 5E 15:59 → EDHOLD 15:59 → 5E 17:20
PROVIDERS: Family Medicine; Internal Medicine; ADMIT Student in an Organized Health Care Education/Training Program; ATTEND Student in an Organized Health Care Education/Training Program
DX: C67.9 Malignant neoplasm of bladder, unspecified (principal); N17.0 Acute kidney failure with tubular necrosis; E43 Unspecified severe protein-calorie malnutrition; E87.1 Hypo-osmolality and hyponatremia; E87.2 Acidosis; Z51.5 Encounter for palliative care; R74.8 Abnormal levels of other serum enzymes; R74.01 Elevation of levels of liver transaminase levels; D72.829 Elevated white blood cell count, unspecified; E87.5 Hyperkalemia; I10 Essential (primary) hypertension; E78.2 Mixed hyperlipidemia; E11.65 Type 2 diabetes mellitus with hyperglycemia; J44.9 Chronic obstructive pulmonary disease, unspecified; G89.29 Other chronic pain; E87.8 Other disorders of electrolyte and fluid balance, not elsewhere classified; E80.6 Other disorders of bilirubin metabolism; Z82.49 Family history of ischemic heart disease and other diseases of the circulatory system; Z87.891 Personal history of nicotine dependence; Z79.899 Other long term (current) drug therapy